=== PATIENT | male | born 1950 | race Caucasian/White ===

== ENCOUNTER 2016-10-31 05:37 | Outpatient (CLI) | payer OTHER ==
[~2016-10-31] VITALS: Ht 170.2 cm; Wt 61.0 kg
[~2016-10-31 05:37] MED LIST: AMLO10TA2 PO; FERR-74 PO; HYDR-3812 PO
== END 2016-10-31 11:17 ==
LOC: PREOP 05:37
PROVIDERS: ATTEND Otolaryngology Otolaryngology/Facial Plastic Surgery
DX: Z01.818 Encounter for other preprocedural examination (principal); J38.1 Polyp of vocal cord and larynx

== ENCOUNTER 2016-11-03 06:51 | Day surgery (SDC) | payer OTHER ==
[~2016-11-03] VITALS: Ht 170.2 cm; Wt 61.0 kg
--- OUTSIDE RECORDS SUMMARY | 2016-11-03 06:54 | XMS REPORT ---
Author Author GUSTAVO BREWSTER Organization [employer] Address Unknown Phone Unavailable Care Team Providers Care Garnett Machine Operator Name Role Phone GUSTAVO BREWSTER CP Unavailable Allergies No Known Allergies Problems Problem Type Condition Code Onset Dates Condition Status Problem Counseling on substance use and abuse V65.42 Active Problem Nondependent tobacco use disorder 305.1 Active Problem Essential hypertension, benign 401.1 Active Medications Medication Code System Code Instructions Start Date End Date Status Dosage Hydrocodone-Acetaminophen [facility] [address]-59 5-325 MG by oral route every 4 hours prn pain take 1-2 tablets Results No Known Results Summary Purpose eClinicalWorks Submission
--- OUTSIDE RECORDS SUMMARY | 2016-11-03 06:54 | XMS REPORT ---
Author Author MIRIAM FRYE Organization [employer] Address Unknown Phone Unavailable Care Team Providers Care Inseam Trimming Machine Operator Name Role Phone MIRIAM FRYE CP Unavailable Allergies No Known Allergies Problems Problem Type Condition Code Onset Dates Condition Status Problem Counseling on substance use and abuse V65.42 Active Problem Nondependent tobacco use disorder 305.1 Active Problem Essential hypertension, benign 401.1 Active Assessment Essential hypertension I10 Active Medications No Known Medications Procedures Procedure Coding System Code Date COMPLETE CBC W/AUTO DIFF WBC CPT-4 33863 May 07, 2015 LIPID PANEL CPT-4 37517 May 07, 2015 ASSAY THYROID STIM HORMONE CPT-4 40056 May 07, 2015 VENIPUNCT, ROUTINE* CPT-4 67437 May 07, 2015 COMPREHEN METABOLIC PANEL CPT-4 29293 May 07, 2015 Results Name Result Date Reference Range Unit Abnormality Flag ROUTINE VENIPUNCTURE Summary Purpose eClinicalWorks Submission
--- OUTSIDE RECORDS SUMMARY | 2016-11-03 06:54 | XMS REPORT | Referral Summary ---
Author Author [facility] Organization [facility] Address Unknown Phone Unavailable Care Team Providers Care Diamond Sizer Name Role Phone No PCP, Pt States PCP Encounter VC Date(s): 10/05/15 - 10/05/15 [facility] [address] [place], [place] [address] Discharge Diagnosis: Minimally displaced zone I fracture of sacrum with routine healing Discharge Diagnosis: Fracture of left inferior pubic ramus with routine healing Discharge Diagnosis: Type I or II open fracture of medial condyle of right femur with routine healing Discharge Diagnosis: Closed displaced segmental fracture of shaft of right femur with routine healing Discharge Diagnosis: Fracture of left superior pubic ramus with routine healing Discharge Diagnosis: Type I or II open transverse fracture of right patella with routine healing Discharge Disposition: 01-Home or Self Care Attending Physician: Enio Terry Admitting Physician: Enio Terry Vital Signs No data available for this section Problem List Condition Effective Dates Status Health Status Informant Closed displaced Active segmental fracture of shaft of right femur with routine healing(Confirmed) Fracture of left Active inferior pubic ramus with routine healing(Confirmed) Minimally displaced Active zone I fracture of sacrum with routine healing(Confirmed) Fracture of left Active superior pubic ramus with routine healing(Confirmed) Type I or II open Active fracture of medial condyle of right femur with routine healing(Confirmed) Type I or II open Active transverse fracture of right patella with routine healing(Confirmed) Status post Active orthopedic surgery, follow-up exam(Confirmed) Tobacco Active patient use(Confirmed) Allergies, Adverse Reactions, Alerts Substance Reaction Severity Status lisinopril swelling Medium Active Medications amLODIPine 10 mg oral tablet 10 mg 1 tabs, Oral, Daily, # 30 tabs, 0 Refill(s) Start Date: 07/23/15 Status: Ordered Feosol 325 mg (65 mg elemental iron) oral tablet 325 mg 1 tabs, Oral, TID, # 270 tabs, 0 Refill(s) Start Date: 07/23/15 Status: Ordered [place] 5 mg-325 mg oral tablet 2 tabs, Oral, q4hr, as needed for pain, 0 Refill(s) Start Date: 07/23/15 Status: Ordered Results No data available for this section Immunizations No data available for this section Procedures Procedure Date Related Diagnosis Body Site CT L PELVIC FXS [facility] BUHR1 07/06/15 IM NAIL R FEMUR [facility] BUHR2 07/06/15 ORIF R MED FEMORAL CONDYLE [facility] BUHR3 07/06/15 PARTIAL PATELLECTOMY W/ PATELLAR TENDON 07/06/15 REPAIR [facility] BUHR4 1S32.512A, S32.592A SUPERIOR AND INFERIOR PUBIC FXS, S32.110A SACRAL FX ACC 09/2015 [facility]LO[facility]DS 08/17/2015 2S72.361A R FEMUR SHAFT FX ACC 07/05/2015 [facility] GLOBAL ENDS 08/17/2015 3S72.431B R OPEN MD FEM CONDYLE FX ACC 07/05/2015 [facility] GLOBAL ENDS 08/17/2015 4S82.031B R OPEN PATELLA FX ACC 07/05/2015 [facility] GLOBAL ENDS 08/17/2015 Social History Social History Type Response Smoking Status Current every day smoker; Type: Cigarettes; Tobacco use per day: Pack Assessment and Plan No data available for this section
--- OUTSIDE RECORDS SUMMARY | 2016-11-03 06:54 | XMS REPORT ---
Author Author MIRIAM FRYE Organization [employer] Address Unknown Phone Unavailable Care Team Providers Care Retail Assistant Manager Name Role Phone MIRIAM FRYE CP Unavailable Allergies No Known Allergies Problems Problem Type Condition Code Onset Dates Condition Status Problem Counseling on substance use and abuse V65.42 Active Problem Nondependent tobacco use disorder 305.1 Active Problem Essential hypertension, benign 401.1 Active Medications Medication Code System Code Instructions Start Date End Date Status Dosage Amlodipine Besylate [facility] [address]-98 10 mg Orally Once a day 1 tablet Results No Known Results Summary Purpose eClinicalWorks Submission
--- OUTSIDE RECORDS SUMMARY | 2016-11-03 06:54 | XMS REPORT ---
Author Author MIRIAM FRYE Organization [employer] Address Unknown Phone Unavailable Care Team Providers Care Wind Turbine Installer Name Role Phone MIRIAM FRYE CP Unavailable Allergies, Adverse Reactions, Alerts Substance Reaction Event Type Lisinopril Info Not Available Drug Allergy Problems Problem Type Condition Code Onset Dates Condition Status Problem Counseling on substance use and abuse V65.42 Active Problem Nondependent tobacco use disorder 305.1 Active Problem Essential hypertension, benign 401.1 Active Assessment Colon cancer screening Z12.11 Active Assessment Essential hypertension I10 Active Assessment Tobacco abuse Z72.0 Active Medications Medication Code System Code Instructions Start Date End Date Status Dosage amlodipine [facility] [address]-33 10 mg May 12, 2014 take 1 tablet (10 mg) by oral route once daily Procedures Procedure Coding System Code Date Office Visit, Est Pt., Level 3 CPT-4 29974 May 06, 2015 Vital Signs Date/Time: May 06, 2015 Temperature 97.8 F Weight 132 lbs Height 67 in BMI 20.67 Index Blood Pressure Diastolic 92 mmHg Blood Pressure Systolic 172 mmHg Cardiac Monitoring Heart Rate 68 bpm Results No Known Results Summary Purpose eClinicalWorks Submission
--- OUTSIDE RECORDS SUMMARY | 2016-11-03 06:54 | XMS REPORT | Referral Summary ---
Author Author [facility] Organization [facility] Address Unknown Phone Unavailable Care Team Providers Care Biological Science Technician Name Role Phone No PCP, Pt States PCP Encounter VC Date(s): 10/05/15 - 10/05/15 [facility] [address] [place], [place] [address] Discharge Disposition: 01-Home or Self Care Attending Physician: Meng Plascencia MD Admitting Physician: Meng Plascencia MD Vital Signs Most recent to 1 oldest [Reference Range]: Respiratory Rate 18 br/min [14-20 br/min] (10/05/15 9:05 AM) Problem List Condition Effective Dates Status Health [...] 0 Refill(s) Start Date: 07/23/15 Status: Ordered [place] 5 mg-325 mg oral tablet 2 tabs, Oral, q4hr, as needed for pain, 0 Refill(s) Start Date: 07/23/15 Status: Ordered Results No data available for this section Immunizations No data available for this section Procedures Procedure Date Related Diagnosis Body Site CT L PELVIC FXS [facility] BUHR1 07/06/15 IM NAIL R FEMUR [facility] BUHR2 07/06/15 ORIF R MED FEMORAL CONDYLE [facility] BUHR3 07/06/15 PARTIAL PATELLECTOMY W/ PATELLAR TENDON 07/06/15 REPAIR [facility] BUHR4 1S32.512A, S32.592A SUPERIOR AND INFERIOR PUBIC [...]
--- OUTSIDE RECORDS SUMMARY | 2016-11-03 06:54 | XMS REPORT | Referral Summary ---
Author Author [facility] Organization [facility] Address Unknown Phone Unavailable Care Team Providers Care Grain Elevator Clerk Name Role Phone No PCP, Pt States PCP Encounter VC Date(s): 08/25/15 - 08/25/15 [facility] [address] [place], [place] [address] Discharge Diagnosis: Status post orthopedic surgery, follow-up exam Discharge Disposition: 01-Home or Self Care Attending Physician: Enio Terry Admitting Physician: Enio Terry Vital Signs Most recent to 1 oldest [Reference Range]: Respiratory Rate 20 br/min [14-20 br/min] (08/25/15 10:24 AM) Problem List Condition Effective Dates Status [...] 0 Refill(s) Start Date: 07/23/15 Status: Ordered [place] 5 mg-325 mg oral tablet 2 tabs, Oral, q4hr, as needed for pain, 0 Refill(s) Start Date: 07/23/15 Status: Ordered Results No data available for this section Immunizations No data available for this section Procedures Procedure Date Related Diagnosis Body Site CT L PELVIC FXS [facility] BUHR1 07/06/15 IM NAIL R FEMUR [facility] BUHR2 07/06/15 ORIF R MED FEMORAL CONDYLE [facility] BUHR3 07/06/15 PARTIAL PATELLECTOMY W/ PATELLAR TENDON 07/06/15 REPAIR [facility] BUHR4 1S32.512A, S32.592A SUPERIOR AND INFERIOR PUBIC FXS, S32.110A SACRAL FX ACC 09/2015 [facility] 08/17/2015 2S72.361A R FEMUR SHAFT FX ACC 07/05/2015 [facility] BioSTL 08/17/2015 3S72.431B R OPEN MD FEM CONDYLE FX ACC 07/05/2015 [facility] BioSTL 08/17/2015 4S82.031B R OPEN PATELLA FX ACC 07/05/2015 [facility] BioSTL 08/17/2015 Social History Social History Type Response Smoking Status Current every day smoker; Type: Cigarettes; Tobacco use per day: Pack Assessment and Plan Extracted from: Title: Office Visit Note Author: Enio Terry Date: 08/25/15 Assessment/Plan 1.Status post orthopedic surgery, follow-up exam Plan: Patient's care was discussed with Dr. Plascencia who felt that he could probably advance to 25 percent weightbearing for the next 2 weeks and then he can be 50 percent weightbearing on that right lower extremity. Preston back in 4 weeks at which point we'll need to review a right femurAP and lateral radiograph andx-rays of the pelvis. I did advise him to gradually cut back on his narcotic pain medicines. Also talked him aboutinsuring that he wears his IROM brace at all times that he is up and about ambulating. We'll over in detail how he can [id number] percent of his body weight by basically putting pressure on a scale with his foot until hesenses are can feel 25 percent of his body weights pressure doing that multiple times until hefeels that he can pot fisher that amount of pressure on that extremity. He is advised if he has questions concerns or problems at any point he's been encouraged to call. He'll continue to get his pain medicines from his primary care provider. Ordered: Postoperative Est 99670 Return to Clinic Closed displaced segmental fracture of shaft of right femur with routine healing Ordered: XR Femur 2+ views Right Fracture of left inferior pubic ramus with routine healing Ordered: XR Pelvis Complete Minimum 3 Views Minimally displaced zone I fracture of sacrum Ordered: XR Pelvis Complete Minimum 3 Views Type I or II open transverse fracture of right patella with routine healing Ordered: XR Femur 2+ views Right Referrals to Other Providers Referred by: Enio Terry
--- OUTSIDE RECORDS SUMMARY | 2016-11-03 06:55 | XMS REPORT | Referral Summary ---
Author Author [facility] Organization [facility] Address Unknown Phone Unavailable Encounter [facility] BURNS [id number] Date(s): 07/23/15 - 07/23/15 [facility] [address] [place], [place] [address] [place] [address] Discharge Diagnosis: Minimally displaced zone I fracture of sacrum with routine healing Discharge Diagnosis: Fracture of left superior pubic ramus with routine healing Discharge Diagnosis: Type I or II open fracture of medial condyle of right femur with routine healing Discharge Diagnosis: Type I or II open transverse fracture of right patella with routine healing Discharge Diagnosis: Closed displaced segmental fracture of shaft of right femur with routine healing Discharge Diagnosis: Encounter for orthopedic follow-up care Discharge Diagnosis: Fracture of left inferior pubic ramus with routine healing Discharge Disposition: 01-Home or Self Care Attending Physician: Adalberto Tripp APRN Admitting Physician: Adalberto Tripp APRN Vital Signs Most recent to 1 oldest [Reference Range]: Respiratory Rate 18 br/min [14-20 br/min] (07/23/15 1:08 PM) Problem List Condition Effective Dates Status Health [...] fracture of right patella with routine healing(Confirmed) Tobacco Active patient use(Confirmed) Allergies, Adverse Reactions, Alerts Substance Reaction Severity Status lisinopril swelling Medium Active Medications amLODIPine 10 mg oral tablet 10 mg 1 tabs, Oral, Daily, # 30 tabs, 0 Refill(s) Start Date: 07/23/15 Status: Ordered Feosol 325 mg (65 mg elemental iron) oral tablet 325 mg 1 tabs, Oral, TID, # 270 tabs, 0 Refill(s) Start Date: 07/23/15 Status: Ordered [place] 5 mg-325 mg oral tablet 2 tabs, Oral, q4hr, as needed for pain, 0 Refill(s) Start Date: 07/23/15 Status: Ordered Results No data available for this section Immunizations No data available for this section Procedures Procedure Date Related Diagnosis Body Site CT L PELVIC FXS [facility] BUHR1 07/06/15 IM NAIL R FEMUR [facility] BUHR2 07/06/15 ORIF R MED FEMORAL CONDYLE [facility] BUHR3 07/06/15 PARTIAL PATELLECTOMY W/ PATELLAR TENDON 07/06/15 REPAIR [facility] BUHR4 1S32.512A, S32.592A SUPERIOR AND INFERIOR PUBIC FXS, S32.110A SACRAL FX ACC 09/2015 [facility] [place] 08/17/2015 2S72.361A R FEMUR SHAFT FX ACC 07/05/2015 [facility] [employer] 08/17/2015 3S72.431B R OPEN MD FEM CONDYLE FX ACC 07/05/2015 [facility] [employer] 08/17/2015 4S82.031B R OPEN PATELLA FX ACC 07/05/2015 [facility] [employer] 08/17/2015 Social History Social History Type Response Smoking Status Current every day smoker; Type: Cigarettes; Tobacco use per day: Pack Assessment and Plan Extracted from: Title: Office Visit Note Author: Adalberto Tripp APRN Date: 07/23/15 Assessment/Plan 1.Type I or II open transverse fracture of right patella with routine healing Ordered: Postoperative Est 03013 XR Femur 2+ views Right 2.Type I or II open fracture of medial condyle of right femur with routine healing Ordered: Postoperative Est 85360 XR Femur 2+ views Right 3.Closed displaced segmental fracture of shaft of right femur with routine healing Ordered: Postoperative Est 85629 XR Femur 2+ views Right 4.Minimally displaced zone I fracture of sacrum with routine healing Ordered : Postoperative Est 49643 5.Fracture of left superior pubic ramus with routine healing Ordered: Postoperative Est 96758 6.Fracture of left inferior pubic ramus with routine healing 7.Encounter for orthopedic follow-up care Reviewed radiographs taken today of the pelvis and right lower extremity with Dr. Plascencia, the patient and family. Fractures remain in good position. Hardwareright retrograde intramedullary romulo and screw fixation right kneeremain in good position with no evidence of loosening or breakage. Discussed patient's progress and prognosis. Counseled the patientand familyabout the severity of the injuries. Discussed with the patient thathe does have amuch higher chance of developing traumatic arthritis in theright knee. Continue nonweightbearingright lower extremity.Stressed with the patient and family that we'll be a long processpossiblyseveral weeksbefore returning tofull weightbearingright lower extremity. Instructed patient to continue use of the right knee IROMbrace at all times. Brace settings were changed to 0-40 of flexion. Continue withphysical therapy for range of motion and stretching exercises to the lower extremities. Continue with walker as ambulation aide. Sutures and katey were removed from theright lower extremity. Patient did have a lacerationacross the anteriorright knee. This wound is well approximatedand healing nicely. Discussedthe signs and symptoms ofinfection. Patientwill follow-up in one month for reevaluation. X-raysof the pelvisandright femurshould be done at that time. Patient and family will call with any questions or concerns during care and treatment of hisinjuries. Patient and family are in agreement with this plan. Dr. Plascencia was extensively involved with today'sevaluation andmedical management. Ordered: XR Femur 2+ views Right
--- OUTSIDE RECORDS SUMMARY | 2016-11-03 06:55 | XMS REPORT ---
Author Author MIRIAM FRYE Organization [employer] Address Unknown Phone Unavailable Care Team Providers Care Production Repairer Name Role Phone MIRIAM FRYE CP Unavailable Allergies No Known Allergies Problems Problem Type Condition Code Onset Dates Condition Status Problem Counseling on substance use and abuse V65.42 Active Problem Nondependent tobacco use disorder 305.1 Active Problem Essential hypertension, benign 401.1 Active Medications Medication Code System Code Instructions Start Date End Date Status Dosage Hydrocodone-Acetaminophen [facility] [address]-18 5-325 MG by oral route every 4 hours prn pain take 1-2 tablets Results No Known Results Summary Purpose eClinicalWorks Submission
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
--- OUTSIDE RECORDS SUMMARY | 2016-11-03 06:55 | XMS REPORT ---
Author Author MIRIAM FRYE Organization [employer] Address Unknown Phone Unavailable Care Team Providers Care Master Hearth Technician Name Role Phone MIRIAM FRYE CP Unavailable Allergies, Adverse Reactions, Alerts Substance Reaction Event Type Lisinopril Info Not Available Drug Allergy Problems Problem Type Condition Code Onset Dates Condition Status Problem Counseling on substance use and abuse V65.42 Active Problem Nondependent tobacco use disorder 305.1 Active Problem Essential hypertension, benign 401.1 Active Assessment Skin growth D49.2 Active Medications Medication Code System Code Instructions Start Date End Date Status Dosage amlodipine [facility] [address]-74 10 mg May 12, 2014 take 1 tablet (10 mg) by oral route once daily Procedures Procedure Coding System Code Date Office Visit, Est Pt., Level 3 CPT-4 27166 May 15, 2015 EXC TR-EXT B9 CHARLES 1.1-2 CM CPT-4 66340 May 15, 2015 Vital Signs Date/Time: May 15, 2015 Temperature 97.8 F Weight 133.7 lbs Height 67 in BMI 20.94 Index Blood Pressure Diastolic 84 mmHg Blood Pressure Systolic 162 mmHg Cardiac Monitoring Heart Rate 88 bpm Results Name Result Date Reference Range Unit Abnormality Flag EXC BENIGN LEISON 1.1-2 cm (specify location) Summary Purpose eClinicalWorks Submission
--- OUTSIDE RECORDS SUMMARY | 2016-11-03 06:55 | XMS REPORT | Referral Summary ---
Author Author [facility] Organization [facility] Address Unknown Phone Unavailable Care Team Providers Care Court Recording Monitor Name Role Phone No PCP, Pt [facility] PCP Encounter [facility] Date(s): 11/03/15 - 11/03/15 [facility] [address] [place], [place] [address] Discharge Diagnosis: Status post orthopedic surgery, follow-up exam Discharge Diagnosis: Type I or II open transverse fracture of right patella with routine healing Discharge Diagnosis: Closed displaced segmental fracture of shaft of right femur with routine healing Discharge Diagnosis: Minimally displaced zone I fracture of sacrum with routine healing Discharge Diagnosis: Type I or II open fracture of medial condyle of right femur with routine healing Discharge Diagnosis: Fracture of left inferior pubic ramus with routine healing Discharge Disposition: 01-Home or Self Care Attending Physician: Meng Plascencia MD Admitting Physician: Meng Plascencia MD Vital Signs No data available for this [...] 0 Refill(s) Start Date: 07/23/15 Status: Ordered Sylmar 5 mg-325 mg oral tablet 2 tabs, Oral, q4hr, as needed for pain, 0 Refill(s) Start Date: 07/23/15 Status: Ordered Results No data available for this section Immunizations No data available for this section Procedures Procedure Date Related Diagnosis Body Site CT L PELVIC FXS [facility]1 07/06/15 IM NAIL R FEMUR [facility]2 07/06/15 ORIF R MED FEMORAL CONDYLE [facility]3 07/06/15 PARTIAL PATELLECTOMY W/ PATELLAR TENDON 07/06/15 REPAIR [facility]4 1S32.512A, S32.592A SUPERIOR AND INFERIOR PUBIC [...]
--- OUTSIDE RECORDS SUMMARY | 2016-11-03 06:55 | XMS REPORT | Referral Summary ---
Author Author [facility] Organization [facility] Address Unknown Phone Unavailable Care Team Providers Care Dental Cream Maker Name Role Phone No PCP, Pt [facility] PCP Encounter VC Date(s): 12/16/15 - 12/16/15 [facility] [address] [place], [place] [address] Discharge Diagnosis: Fracture of left superior pubic [...] Range]: Respiratory Rate 18 br/min [14-20 br/min] (12/16/15 9:15 AM) Problem List Condition Effective Dates Status [...] Severity Status lisinopril swelling Medium Active Medications Aleve 220 mg oral tablet 220 mg 1 tabs, Oral, BID, 0 Refill(s) Start Date: 12/16/15 Status: Ordered amLODIPine 10 mg oral tablet 10 mg 1 tabs, Oral, Daily, # 30 tabs, 0 Refill(s) Start Date: 07/23/15 Status: Ordered Feosol 325 mg (65 mg elemental iron) oral tablet 325 mg 1 tabs, Oral, TID, # 270 tabs, 0 Refill(s) Start Date: 07/23/15 Status: Ordered [place] 5 mg-325 mg oral tablet 2 tabs, Oral, q4hr, as needed for pain, 0 Refill(s) Start Date: 07/23/15 Status: Ordered Results No data available for this section Immunizations No data available for this section Procedures Procedure Date Related Diagnosis Body Site CT L PELVIC FXS [facility]1 07/06/15 IM NAIL R FEMUR [facility]HR2 07/06/15 ORIF R MED FEMORAL CONDYLE [facility]3 07/06/15 PARTIAL PATELLECTOMY W/ PATELLAR TENDON 07/06/15 REPAIR [facility]4 1S32.512A, S32.592A SUPERIOR AND INFERIOR PUBIC FXS, S32.110A SACRAL FX ACC 09/2015 [facility] 08/17/2015 2S72.361A R FEMUR SHAFT FX ACC 07/05/2015 [facility] GLOBAL ENDS 08/17/2015 3S72.431B R OPEN MD FEM CONDYLE [facility] 07/05/2015 [facility] GLOBAL ENDS 08/17/2015 4S82.031B R OPEN PATELLA FX ACC 07/05/2015 [facility] GLOBAL ENDS 08/17/2015 Social History Social History Type Response Smoking Status Current every day smoker; Type: Cigarettes; Tobacco use per day: Pack Assessment and Plan No data available for this section
--- OUTSIDE RECORDS SUMMARY | 2016-11-03 06:55 | XMS REPORT ---
Author Author MIRIAM FRYE Organization [employer] Address Unknown Phone Unavailable Care Team Providers Care Community Health Educator Name Role Phone MIRIAM FRYE CP Unavailable Allergies No Known Allergies Problems Problem Type Condition Code Onset Dates Condition Status Problem Counseling on substance use and abuse V65.42 Active Problem Nondependent tobacco use disorder 305.1 Active Problem Essential hypertension, benign 401.1 Active Medications Medication Code System Code Instructions Start Date End Date Status Dosage Hydrocodone-Acetaminophen [facility] [address]-16 5-325 MG by oral route every 4 hours prn pain take 1-2 tablets Results No Known Results Summary Purpose [employer] Submission
[2016-11-03] MEDS ORDERED: LACTATED RINGERS 1,000 ML IV PRN (07:35)
[2016-11-03 07:40] VITALS: BP 170/95
[2016-11-03] MEDS ORDERED: fentaNYL INJECTION 100 MCG/2 ML AMP ONE (08:26)
[2016-11-03] MEDS ORDERED: MIDAZOLAM 2 MG/2 ML (VERSED) VIAL ONE (08:26)
--- NOTE | 2016-11-03 08:31 | Progress Note-Pre Operative ---
Pre-Operative Progress Note H&P Reviewed The H&P was reviewed, patient examined and no changes noted. Date Seen by Provider: Nov 03, 2016 Time Seen by Provider: 08:00 Date H&P Reviewed: Nov 03, 2016 Time H&P Reviewed: 08:00 Pre-Operative Diagnosis: Bilateral Vocal Cord Lesions PRIYANK MCKENZIE MD Nov 03, 2016 8:31 am
[2016-11-03] MEDS ORDERED: LIDOCAINE/EPI 1%-1:200,000 (XYLOCAINE) 30 ML VIAL ONE (08:32)
--- NOTE | 2016-11-03 09:18 | Progress Note-Post Operative ---
Post-Operative Progess Note Surgeon (s)/Warehouse Associate (s) Surgeon PRIYANK MCKENZIE MD Warehouse Associate n/a Pre-Operative Diagnosis Bilateral Vocal Cord Lesions Post-Operative Diagnosis same Post-Op Procedure Note Date of Procedure: Nov 03, 2016 Name of Procedure Performed: Direct Laryngoscopy with Removal of Bilateral Vocal Cord Lesions Description & Findings Description and Findings: n/a Anesthesia Type get Estimated Blood Loss minimal Packing none. Specimen(s) collected/removed Bilateral Vocal cord lesions for permanents PRIYANK MCKENZIE MD Nov 03, 2016 9:18 am
[2016-11-03] MEDS ORDERED: ACETAMINOPHEN 325 MG TABLET/CAPLET (TYLENOL) PO PRN (09:30)
[2016-11-03] MEDS ORDERED: PROMETHAZINE INJ 25 MG/ML (PHENERGAN) AMP IV PRN (09:30)
[2016-11-03] MEDS ORDERED: HYDROcodone/APAP 5 MG/325 MG (LORTAB) TAB PO PRN (09:30)
[2016-11-03 10:20] VITALS: BP 141/82
[2016-11-03] MEDS ORDERED: HYDR-3874 PO (10:31)
[2016-11-03 10:50] VITALS: BP 140/76
[2016-11-03 11:20] VITALS: BP 140/76
== END 2016-11-03 11:20 | disposition home or self-care (01) ==
LOC: SDC 06:51
PROVIDERS: ATTEND Otolaryngology Otolaryngology/Facial Plastic Surgery
DX: C32.0 Malignant neoplasm of glottis (principal); J38.1 Polyp of vocal cord and larynx; I10 Essential (primary) hypertension; F17.210 Nicotine dependence, cigarettes, uncomplicated; Z79.899 Other long term (current) drug therapy
CPT/HCPCS: 87081; 88305; 88341; 88342